=== PATIENT | female | born 1950 | race Caucasian/White ===

== ENCOUNTER 2019-12-15 05:30 | Day surgery (SDC) | payer MEDICARE ==
[2019-12-14 10:53] VITALS: BP 150/84
[2019-12-14 11:29] LABS: BASOPHILS % (AUTO) 0.5 % (0.0-5.0); EOSINOPHILS % (AUTO) 0.5 % (0.0-8.0); HEMATOCRIT 45.6 % (36-48); LYMPHOCYTES % (AUTO) 12.4 % (21.0-51.0); MEAN CORPUSCULAR HGB CONC 33.3 g/dL (32.0-36.0); MEAN CORPUSCULAR VOLUME 99.1 fL (79-99); MONOCYTES % (AUTO) 7.2 % (3.0-13.0); PLATELET COUNT (AUTO) 282 K/uL (130-400); RED CELL DISTRIBUTION WIDTH 13.2 % (11.0-15.5); WHITE BLOOD COUNT (AUTO) 7.9 K/uL (4.8-10.8)
[2019-12-14 11:42] LABS: CREATININE 0.7 mg/dL (0.5-1.5); POTASSIUM 4.4 mmol/L (3.5-5.1)
[~2019-12-15] VITALS: Ht 165.1 cm; Wt 83.5 kg
[2019-12-15] VITALS (18 sets, daily range): BP systolic 122–159; BP diastolic 64–86
[~2019-12-15 05:30] MED LIST: AMIT10TA6 PO; BIOT10005 PO; CELE200C PO; CRAN500T PO; FOLI1 PO; HYDR200T4 PO; KRIL1CAP19 PO; LORA10CA PO; METH10005 PO; METH2.5T6 PO; MULT-685 PO; PRED10TA3 PO; PREG100C PO; PREG50 PO; PSYL0.5240 PO; TRAM50TA4 PO; [UNRECOGNIZED DRUG - CODE] PO
[2019-12-15] MEDS ORDERED: PRED1TAB PO (05:59)
[2019-12-15] MEDS ORDERED: CEFAZOLIN SODIUM 1 GM VIAL IVP SCH (06:00)
[2019-12-15] MEDS ORDERED: ADAL40SY SQ (06:01)
[2019-12-15] MEDS: LACTATED RINGERS 1000ML 1,000 ML IV SCH ×3 (06:02→07:30)
[2019-12-15] MEDS ORDERED: ACETIC ACID 0.25% 1,000 ML IRRIG.SOLN ONE (06:17)
[2019-12-15] MEDS ORDERED: STRONG IODINE SOLN 14ML BOTTLE ONE (06:18)
[2019-12-15] MEDS ORDERED: LIDOCAINE PF 2% 5ML ABBOJECT ONE (06:32)
[2019-12-15] MEDS ORDERED: FENTANYL CITRATE PF 50 MCG/1 ML 2ML VIAL ONE (06:32)
[2019-12-15] MEDS ORDERED: PROPOFOL 10 MG/ML 20ML VIAL IV ONE (06:32)
[2019-12-15] MEDS ORDERED: ONDANSETRON HCL 4 MG/2 ML VIAL ONE (07:22)
[2019-12-15] MEDS ORDERED: KETOROLAC TROMETHAMINE 30MG/ML ONE (07:55)
--- NOTE | 2019-12-15 09:20 | NUR ---
PT. LEFT VIA WHEELCHAIR IN PVT CAR, NO COMPLICATIONS, V/S STABLE, D/C INSTRUCTIONS GIVEN TO FRIEND WITH F/U APPT.
== END 2019-12-15 09:15 | disposition home or self-care (01) ==
LOC: SUH 05:30 → DAH 05:30 → SUH 09:15
PROVIDERS: ATTEND Obstetrics & Gynecology
DX: N95.0 Postmenopausal bleeding (principal); N84.0 Polyp of corpus uteri; M06.9 Rheumatoid arthritis, unspecified; K21.9 Gastro-esophageal reflux disease without esophagitis; Z79.899 Other long term (current) drug therapy
CPT/HCPCS: 36415; 58120; 80048; 85025; 86850; 86900; 86901; 88305; A4215; A4221; A4222; A4223; A4663; A6260; J1885; J2001; J2405; J2704; J3010; J7120

== ENCOUNTER → 2020-01-20 | Outpatient (CLI) | payer MEDICARE ==
[~2020-01-20] MED LIST changes: +ADAL40SY SQ; +GADODIAMIDE 10 MMOL/20 ML VIAL IV ONE; -PRED10TA3 PO; +PRED1TAB PO
== END | disposition home or self-care (01) ==
LOC: RAH 07:34
PROVIDERS: ATTEND Obstetrics & Gynecology Gynecologic Oncology
DX: C54.1 Malignant neoplasm of endometrium (principal)
CPT/HCPCS: 72197; A9579